=== PATIENT | male | born 1980 | race Caucasian/White ===

== ENCOUNTER 2017-10-05 16:03 | Emergency (ER) | payer OTHER, MEDICAID ==
[~2017-10-05] VITALS: Ht 180.3 cm; Wt 149.7 kg
[~2017-10-05 16:03] MED LIST: HALDOL 0.5 MG0.5 M1 PO; HYDROCODONE-APA1 TA1 PO; TOPAMAX 100 MG100 MG PO
[2017-10-05] MEDS ORDERED: BUSPIRONE HCL10 MG PO (16:20)
[2017-10-05 17:16] LABS: ABSOLUTE BASOPHILS 0.1 thou/uL (0.0-0.2); ABSOLUTE EOSINOPHILS 0.1 thou/uL (0.0-0.7); ABSOLUTE LYMPHOCYTES 1.7 thou/uL (0.8-5.3); ABSOLUTE MONOCYTES 0.6 thou/uL (0.0-1.2); ABSOLUTE NEUTROPHILS 4.4 thou/uL (1.6-8.1); BASOPHILS 0.8 %; EOSINOPHILS 2.2 %; HEMOGLOBIN 12.8 gm/dL (14.0-18.0); LYMPHOCYTES 24.6 %; MCH 26.2 pg (26.0-34.0); MCHC 32.1 g/dL (28.0-37.0); MCV 81.7 fL (80.0-100.0); MONOCYTES 8.5 %; MPV 8.8 fl. (7.2-11.1); NUCLEATED RBCS 0 /100WBC; PLATELET COUNT* 205 thou/uL (150-400); POLYS 63.9 %; RDW-CV 17.8 % (10.5-14.5); WBC 6.8 thou/uL (4.0-11.0)
[2017-10-05 17:24] LABS: ANION GAP 7 mmol/L (7-16); BUN 10 mg/dL (7-18); CALCIUM 8.7 mg/dL (8.5-10.1); CHLORIDE 106 mmol/L (98-107); CO2 30 mmol/L (21-32); CREATININE 0.9 mg/dL (0.6-1.3); GLUCOSE 85 mg/dL (70-99); POTASSIUM 3.9 mmol/L (3.5-5.1); SODIUM 143 mmol/L (136-145)
[2017-10-05 17:31] LABS: ALBUMIN 3.3 g/dL (3.4-5.0); ALKALINE PHOSPHATASE 53 U/L (46-116); LIPASE 89 U/L (73-393); SGOT 36 U/L (15-37); SGPT 72 U/L (30-65); TOTAL BILIRUBIN 0.3 mg/dL (<0.1-1.0); TROPONIN-I LEVEL <0.06 ng/mL (<0.06)
[2017-10-05 17:48] LABS: URINE BILIRUBIN NEGATIVE (Negative); URINE BLOOD NEGATIVE (Negative); URINE CLARITY CLEAR; URINE COLOR YELLOW; URINE GLUCOSE-RANDOM NEGATIVE (Negative); URINE KETONES NEGATIVE (Negative); URINE LEUKOCYTES-REFLEX NEGATIVE (Negative); URINE NITRITE-REFLEX NEGATIVE (Negative); URINE PROTEIN NEGATIVE (Negative); URINE SPECIFIC GRAVITY >= 1.030 (1.005-1.030); URINE UROBILINOGEN 0.2 E.U./dl (0.2-1.0)
[2017-10-05] MEDS ORDERED: CARAFATE 1 GM TA1 G1 PO (17:52)
[2017-10-05] MEDS ORDERED: ZOFRAN ODT4 MG PO (17:52)
[2017-10-05 18:09] VITALS: BP 129/71
--- NOTE | 2017-10-06 13:00 | EKG ---
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
== END 2017-10-05 18:10 | disposition home or self-care (01) ==
LOC: M.ERS 16:03
PROVIDERS: Emergency Medicine Emergency Medical Services
DX: K29.70 Gastritis, unspecified, without bleeding (principal); Z88.8 Allergy status to other drugs, medicaments and biological substances

== ENCOUNTER 2017-12-17 09:52 | Emergency (ER) | payer OTHER, MEDICAID ==
[~2017-12-17] VITALS: Ht 180.3 cm; Wt 149.2 kg
[~2017-12-17 09:52] MED LIST changes: +BUSPIRONE HCL10 MG PO; +CARAFATE 1 GM TA1 G1 PO; +ZOFRAN ODT4 MG PO
[2017-12-17 10:45] LABS: ABSOLUTE EOSINOPHILS 0.1 thou/uL (0.0-0.7); ABSOLUTE LYMPHOCYTES 1.7 thou/uL (0.8-5.3); ABSOLUTE MONOCYTES 0.4 thou/uL (0.0-1.2); ABSOLUTE NEUTROPHILS 3.4 thou/uL (1.6-8.1); BASOPHILS 0.8 %; EOSINOPHILS 1.8 %; HEMATOCRIT 43.2 % (42.0-52.0); HEMOGLOBIN 13.9 gm/dL (14.0-18.0); LYMPHOCYTES 30.1 %; MCH 25.9 pg (26.0-34.0); MCHC 32.1 g/dL (28.0-37.0); MCV 80.7 fL (80.0-100.0); MONOCYTES 6.7 %; NUCLEATED RBCS 0 /100WBC; PLATELET COUNT* 230 thou/uL (150-400); POLYS 60.6 %; RBC 5.36 mil/uL (4.50-6.00); WBC 5.6 thou/uL (4.0-11.0)
[2017-12-17 10:58] LABS: CALCIUM 8.2 mg/dL (8.5-10.1); CREATININE 0.8 mg/dL (0.6-1.3); POTASSIUM 4.7 mmol/L (3.5-5.1)
[2017-12-17 11:02] LABS: ALBUMIN 3.2 g/dL (3.4-5.0); TOTAL BILIRUBIN 0.2 mg/dL (<0.1-1.0); TOTAL PROTEIN 7.1 g/dL (6.4-8.2)
[2017-12-17 11:03] LABS: BE -1.9 mmol/L (-2 to +3); HCO3 24.4 mmol/L (22.0-26.0); PCO2 47.6 mmHg (35.0-45.0); pH 7.328 (7.340-7.450)
[2017-12-17 11:07] LABS: PO2 130.3 mmHg (75.0-100.0)
[2017-12-17 11:28] LABS: URINE BILIRUBIN NEGATIVE (Negative); URINE BLOOD NEGATIVE (Negative); URINE CLARITY CLEAR; URINE COLOR YELLOW; URINE GLUCOSE-RANDOM NEGATIVE (Negative); URINE KETONES TRACE (Negative); URINE LEUKOCYTES-REFLEX NEGATIVE (Negative); URINE NITRITE-REFLEX NEGATIVE (Negative); URINE PROTEIN TRACE (Negative); URINE SPECIFIC GRAVITY >= 1.030 (1.005-1.030); URINE UROBILINOGEN 0.2 E.U./dl (0.2-1.0)
[2017-12-17 11:34] LABS: AMP/METHAMP Negative (Negative); BARBITURATES Negative (Negative); BENZODIAZEPINES Negative (Negative); COCAINE Negative (Negative); METHADONE Negative (Negative); OPIATES Negative (Negative); PCP Negative (Negative); THC Negative (Negative)
--- NOTE | 2017-12-17 15:38 | EKG ---
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 : 1980 Requested By: Zulay Bermudez Order Number: [id number] MD: Tommie Mcginnis Measurements Intervals [place] Rate: 83 P: 43 [place]: 125 QRS: 65 QRSD: 107 T: 55 QT: 428 QTc: 503 Interpretive Statements Sinus rhythm Abnormal R-wave progression, early transition Prolonged QT interval Compared to ECG 10/05/2017 17:05:23 Prolonged QT interval now present Electronically Signed On 12-17-2017 15:38:36 CDT by Tommie Mcginnis [email or web address] <ELECTRONICALLY SIGNED> By: Tommie Mcginnis MD, [facility] 12/17/17 1538 1047 1047 Tommie Mcginnis MD, FAC /EPI
[2017-12-17 15:59] VITALS: BP 145/82
--- NOTE | 2017-12-17 16:15 | NUR ---
WARREN met with pt to discuss resources for pt to reacquire a CPAP. WARREN called [facility] who provided pt a CPAP in the past, pt was noncompliant and would not let [facility] steel pickler device but eventually company steel pickler device last noted in [facility]'s system as May of 2017. SW provided information on finding PCP and sleep lab; WARREN explained that in order for pt to receive new CPAP, pt needed to begin process over again. Pt said he has an appt on Sunday to see a doctor at [facility] in [place]. Pt said he does not have much family support and he takes a bus wherever he needs to go.
== END 2017-12-17 16:09 | disposition home or self-care (01) ==
LOC: M.ERS 09:52
PROVIDERS: Personal Emergency Response Attendant
DX: G47.30 Sleep apnea, unspecified (principal); Z88.8 Allergy status to other drugs, medicaments and biological substances

== ENCOUNTER 2018-01-06 03:29 | Emergency (ER) | payer OTHER, MEDICAID ==
[~2018-01-06] VITALS: Ht 180.3 cm; Wt 147.4 kg
[2018-01-06] MEDS ORDERED: BENADRYL25 MG PO (03:52)
[2018-01-06 04:33] VITALS: BP 119/69
== END 2018-01-06 04:34 | disposition home or self-care (01) ==
LOC: M.ERS 03:29
DX: T78.49XA Other allergy, initial encounter (principal); G47.30 Sleep apnea, unspecified; Z90.89 Acquired absence of other organs; Z88.8 Allergy status to other drugs, medicaments and biological substances; X58.XXXA Exposure to other specified factors, initial encounter

== ENCOUNTER 2018-03-25 10:23 | Emergency (ER) | payer MEDICARE, MEDICAID ==
[~2018-03-25] VITALS: Ht 180.3 cm; Wt 158.8 kg
[~2018-03-25 10:23] MED LIST changes: +BENADRYL25 MG PO
[2018-03-25] MEDS ORDERED: BUSPIRONE HCL10 MG PO (10:39)
[2018-03-25 11:07] LABS: ABSOLUTE EOSINOPHILS 0.1 thou/uL (0.0-0.7); ABSOLUTE LYMPHOCYTES 1.4 thou/uL (0.8-5.3); ABSOLUTE MONOCYTES 0.4 thou/uL (0.0-1.2); ABSOLUTE NEUTROPHILS 4.4 thou/uL (1.6-8.1); BASOPHILS 0.2 %; HEMATOCRIT 40.1 % (42.0-52.0); HEMOGLOBIN 12.7 gm/dL (14.0-18.0); LYMPHOCYTES 21.8 %; MCH 25.8 pg (26.0-34.0); MCHC 31.7 g/dL (28.0-37.0); MCV 81.5 fL (80.0-100.0); MONOCYTES 6.2 %; MPV 8.8 fl. (7.2-11.1); NUCLEATED RBCS 0 /100WBC; PLATELET COUNT* 234 thou/uL (150-400); POLYS 69.8 %; RBC 4.92 mil/uL (4.50-6.00); RDW-CV 17.7 % (10.5-14.5); WBC 6.4 thou/uL (4.0-11.0)
[2018-03-25 11:09] LABS: CALCIUM 8.4 mg/dL (8.5-10.1); CREATININE 0.9 mg/dL (0.6-1.3); POTASSIUM 4.1 mmol/L (3.5-5.1)
[2018-03-25 11:14] LABS: ALBUMIN 2.9 g/dL (3.4-5.0); TOTAL BILIRUBIN 0.5 mg/dL (<0.1-1.0); TOTAL PROTEIN 7.4 g/dL (6.4-8.2)
[2018-03-25] MEDS ORDERED: CLEOCIN HCL150 M1 PO (12:23)
[2018-03-25 12:35] VITALS: BP 145/84
== END 2018-03-25 12:37 | disposition home or self-care (01) ==
LOC: M.ERS 10:23
PROVIDERS: Nurse Practitioner Family
DX: L03.032 Cellulitis of left toe (principal); I89.0 Lymphedema, not elsewhere classified; Z88.8 Allergy status to other drugs, medicaments and biological substances

== ENCOUNTER 2019-05-31 18:37 | Emergency (ER) | payer MEDICARE ==
[~2019-05-31] VITALS: Ht 180.3 cm; Wt 169.0 kg
[~2019-05-31 18:37] MED LIST changes: +CLEOCIN HCL150 M1 PO
[2019-05-31 19:23] LABS: ABSOLUTE EOSINOPHILS 0.1 thou/uL (0.0-0.7); ABSOLUTE LYMPHOCYTES 1.4 thou/uL (0.8-5.3); ABSOLUTE MONOCYTES 0.5 thou/uL (0.0-1.2); ABSOLUTE NEUTROPHILS 3.5 thou/uL (1.6-8.1); BASOPHILS 0.8 %; EOSINOPHILS 2.2 %; HEMATOCRIT 39.8 % (42.0-52.0); HEMOGLOBIN 13.1 gm/dL (14.0-18.0); LYMPHOCYTES 25.9 %; MCV 81.6 fL (80.0-100.0); MONOCYTES 8.7 %; MPV 8.9 fl. (7.2-11.1); NUCLEATED RBCS 0 /100WBC; PLATELET COUNT* 241 thou/uL (150-400); POLYS 62.4 %; RBC 4.87 mil/uL (4.50-6.00); WBC 5.6 thou/uL (4.0-11.0)
[2019-05-31 19:31] LABS: CALCIUM 9.1 mg/dL (8.5-10.1); CREATININE 0.9 mg/dL (0.6-1.3); POTASSIUM 4.2 mmol/L (3.5-5.1)
[2019-05-31 19:36] LABS: ALBUMIN 3.1 g/dL (3.4-5.0); TOTAL BILIRUBIN 0.2 mg/dL (<0.1-1.0); TOTAL PROTEIN 7.1 g/dL (6.4-8.2)
[2019-05-31 23:01] VITALS: BP 128/62
== END 2019-05-31 23:04 | disposition home or self-care (01) ==
LOC: M.ERS 18:37
PROVIDERS: Personal Emergency Response Attendant
DX: L03.116 Cellulitis of left lower limb (principal); L03.115 Cellulitis of right lower limb; G47.30 Sleep apnea, unspecified; Z88.8 Allergy status to other drugs, medicaments and biological substances

== ENCOUNTER 2019-06-01 18:07 | Emergency (ER) | payer MEDICARE ==
[~2019-06-01] VITALS: Ht 175.3 cm; Wt 176.9 kg
[2019-06-01 19:11] VITALS: BP 123/71
== END 2019-06-01 19:11 | disposition home or self-care (01) ==
LOC: M.ERS 18:07
DX: R51 Headache (principal); G47.30 Sleep apnea, unspecified; Z88.8 Allergy status to other drugs, medicaments and biological substances

== ENCOUNTER 2019-06-15 21:15 | Emergency (ER) | payer MEDICARE ==
[~2019-06-15] VITALS: Ht 180.3 cm; Wt 173.0 kg
[2019-06-15 22:51] VITALS: BP 138/70
== END 2019-06-15 22:53 | disposition home or self-care (01) ==
LOC: M.ERS 21:15
DX: S96.812A Strain of other specified muscles and tendons at ankle and foot level, left foot, initial encounter (principal); G47.30 Sleep apnea, unspecified; Z88.8 Allergy status to other drugs, medicaments and biological substances; W18.39XA Other fall on same level, initial encounter; Y93.89 Activity, other specified; Y92.89 Other specified places as the place of occurrence of the external cause; Y99.8 Other external cause status

== ENCOUNTER 2019-06-18 00:52 | Emergency (ER) | payer MEDICARE ==
[~2019-06-18] VITALS: Ht 180.3 cm; Wt 163.3 kg
[2019-06-18 02:44] VITALS: BP 143/73
== END 2019-06-18 02:44 | disposition home or self-care (01) ==
LOC: M.ERS 00:52
DX: S93.492A Sprain of other ligament of left ankle, initial encounter (principal); G47.30 Sleep apnea, unspecified; Z88.8 Allergy status to other drugs, medicaments and biological substances; X50.1XXA Overexertion from prolonged static or awkward postures, initial encounter; Y93.89 Activity, other specified; Y92.89 Other specified places as the place of occurrence of the external cause; Y99.8 Other external cause status

== ENCOUNTER 2019-06-20 16:19 | Emergency (ER) | payer MEDICARE ==
[~2019-06-20] VITALS: Ht 180.3 cm; Wt 149.7 kg
[2019-06-20 16:56] LABS: INFLUENZA A ANTIGEN Negative (Negative); INFLUENZA B ANTIGEN Negative (Negative)
[2019-06-20 17:12] VITALS: BP 147/71
== END 2019-06-20 17:02 | disposition left against medical advice (07) ==
LOC: M.ERS 16:19
PROVIDERS: Nurse Practitioner Family
DX: Z53.21 Procedure and treatment not carried out due to patient leaving prior to being seen by health care provider (principal)

== ENCOUNTER 2019-08-03 21:32 | Emergency (ER) | payer MEDICARE ==
[~2019-08-03] VITALS: Ht 180.3 cm; Wt 136.1 kg
[2019-08-03 23:40] LABS: ABSOLUTE BASOPHILS 0.1 thou/uL (0.0-0.2); ABSOLUTE EOSINOPHILS 0.1 thou/uL (0.0-0.7); ABSOLUTE LYMPHOCYTES 1.6 thou/uL (0.8-5.3); ABSOLUTE MONOCYTES 0.6 thou/uL (0.0-1.2); ABSOLUTE NEUTROPHILS 4.6 thou/uL (1.6-8.1); BASOPHILS 0.9 %; EOSINOPHILS 2.1 %; HEMATOCRIT 41.9 % (42.0-52.0); HEMOGLOBIN 13.9 gm/dL (14.0-18.0); LYMPHOCYTES 22.9 %; MCH 26.5 pg (26.0-34.0); MCHC 33.2 g/dL (28.0-37.0); MCV 79.9 fL (80.0-100.0); MONOCYTES 8.6 %; MPV 8.6 fl. (7.2-11.1); NUCLEATED RBCS 0 /100WBC; PLATELET COUNT* 261 thou/uL (150-400); POLYS 65.5 %; RBC 5.25 mil/uL (4.50-6.00); RDW-CV 18.7 % (10.5-14.5)
[2019-08-03 23:50] LABS: CALCIUM 8.7 mg/dL (8.5-10.1); CREATININE 0.8 mg/dL (0.6-1.3)
[2019-08-04 00:44] VITALS: BP 114/47
== END 2019-08-04 00:46 | disposition home or self-care (01) ==
LOC: M.ERS 21:32
PROVIDERS: Emergency Medicine Emergency Medical Services
DX: I87.8 Other specified disorders of veins (principal); G47.30 Sleep apnea, unspecified; Z90.89 Acquired absence of other organs; Z98.890 Other specified postprocedural states; Z88.8 Allergy status to other drugs, medicaments and biological substances

== ENCOUNTER 2019-09-01 18:27 | Emergency (ER) | payer MEDICARE ==
[~2019-09-01] VITALS: Ht 180.3 cm; Wt 161.0 kg
[2019-09-01 21:34] VITALS: BP 137/77
== END 2019-09-01 21:34 | disposition home or self-care (01) ==
LOC: M.ERS 18:27
DX: S81.802D Unspecified open wound, left lower leg, subsequent encounter (principal); G47.30 Sleep apnea, unspecified; Z88.8 Allergy status to other drugs, medicaments and biological substances; Z90.89 Acquired absence of other organs; X58.XXXD Exposure to other specified factors, subsequent encounter